=== PATIENT | female | born 1945 | race Two or more races ===

== ENCOUNTER 2016-12-26 15:22 | Emergency (ER) | payer OTHER ==
[~2016-12-26] VITALS: Ht 167.6 cm; Wt 90.7 kg
--- NOTE | ~2016-12-26 | CT122 ---
[facility] A Service of [facility] & [facility] / [facility] RADIOLOGY TEXT RESULTS PATIENT: CHRISTEL BARRERA LOCATION: [place] : 49 UNIT #: [id number] AGE: [address]: Kisha Bazzi SEX: F ORDER DR: [id number] [facility] [address] [place], [place] [address] [id number] E MR#: [id number] Acc #: [id number] NAME: CHRISTEL BARRERA : 1945 SEX: F STUDY DATE/TIME: 12/26/2016 17:50 UNIT: [place] ROOM: STUDY DESCRIPTION: CT Thoracic Spine Wo Cont Attending Physician: Kisha Bazzi Pa-C Ordering Physician: Kisha Bazzi Pa-C Primary Care Physician: No Primary Care Physician MEDICAL IMAGING REPORT This report is preliminary unless electronic signature is present EXAM CT thoracic spine. HISTORY Back pain 3-4 days. Abnormal T-spine x-ray at [facility] today. TECHNIQUE CT thoracic spine performed. This CT exam was performed with one or more of the following radiation dose reduction techniques: automatic exposure control, adjustment of mA and/or kV according to patient size, and iterative reconstruction. Bone soft tissue windows reviewed. Sagittal coronal reconstructions performed. COMPARISON Comparison to plain radiographs earlier on same date. FINDINGS The thyroid is heterogeneous and markedly enlarged extending into the superior mediastinum bilaterally. The visualized left thyroid lobe measures approximately 3.6 cm x 5.6 cm x 5.8 cm and the visualized right thyroid lobe measures approximately 2.2 cm x 4.8 cm x 5.2 cm. Multiple hyper and hypodense nodules. Coarse calcifications in bilateral thyroid lobes. Probably thyroid goiter. Correlate clinically and if warranted consider assessment with thyroid ultrasound. There is mass effect on the trachea, but no critical luminal narrowing. The remainder of visualized mediastinum unremarkable. Heart probably within normal limits of size. No pleural effusions. Visualized portions of the liver, spleen, pancreas, adrenal glands, upper renal poles notable for right upper pole renal cyst measuring about 3 cm x 3.4 cm. No adenopathy. Visualized esophagus, stomach, small bowel and colon unremarkable. The thoracic spine shows mild generalized dextroscoliosis. There is some straightening of the normal lumbar kyphosis. Chronic-appearing STS. [facility] A Service of [facility] RADIOLOGY TEXT RESULTS PATIENT: CHRISTEL BARRERA LOCATION: [place] : 49 UNIT #: [id number] AGE: [address]: Kisha Bazzi SEX: F ORDER DR: compression deformity at the T11 vertebral body with about 16% loss of height posteriorly relative to T10 and about 36% loss of height anteriorly relative to T10. I see no evidence of paraspinal soft tissue edema or hematoma to increase suspicion for acute compression deformity. There is some trabecular impaction, but no discrete acute appearing fracture plane. The compression involves predominately the lower T11 vertebral body. There are prominent Schmorl nodes centrally at the L1 vertebral body level with marked central loss of height at L1 due to the Schmorl nodes, but the anterior and posterior heights are within normal limits. Multilevel degenerative change in the spine. No traumatic appearing fracture. C5-C6: Posterior disc osteophyte complex. Anterior central cord contact. Mild central spinal canal narrowing. C6-C7: Posterior disc osteophyte complex. Mild to moderate central and left paracentral spinal canal narrowing. C7-T1, T1-T2, T2-T3, T3-T4, T4-T5, T5-T6, T6-T7, T7-T8, T8-T9, T9-T10: Left paracentral disc osteophyte complex, T9-T10, with some left paracentral mass effect on thecal sac. No overall spinal stenosis and no definite cord contact. T10-T11: Unremarkable. T11-T12: There is a left posterolateral disc bulge/protrusion abutting the left exiting nerve. No spinal stenosis. T12-L1: Posterior disc osteophyte complex. Minimal mass effect on thecal sac. No spinal stenosis. The neural foramina are patent. T12-L1, L1-L2: No significant disc bulge or herniation and no spinal stenosis. Neural foramina patent without evidence of exiting nerve impingement. IMPRESSION 1. Generalized chronic-appearing compression deformity at the T11 vertebral body, more pronounced anteriorly than posteriorly with about 16% loss of height posteriorly and 36% loss of height anteriorly relative to normal T10. No paraspinal soft tissue findings to suggest acute time course. No distinct cortical break seen. I would favor that this is chronic in time course. No underlying bony destructive process. 2. Moderate to marked central vertebral body loss of height at the L1 level due to superior and inferior endplate Schmorl nodes. The anterior, posterior and lateral aspects of the L1 vertebral body are of normal height. 3. Multilevel degenerative changes in the thoracic spine as described above. See complete kgdxb-[id number] descriptions in body of report. 4. Enlarged substernal thyroid. See measurements in body of report. [facility] A Service of [facility] RADIOLOGY TEXT RESULTS PATIENT: CHRISTEL BARRERA LOCATION: [facility] : [birth year] UNIT #: [id number] AGE: [address]: Kisha Bazzi SEX: F ORDER DR: Multiple nodules. Probably reflecting multinodular goiter. Correlate clinically. Consider elective thyroid ultrasound for further assessment if it would assist in management. The enlarged thyroid does exert mass effect on the trachea, but there is no critical tracheal narrowing. 5. Right upper pole renal cyst. Dictated by... Marcelino Alba M.D. THIS IS AN ELECTRONICALLY VERIFIED REPORT Marcelino Alba M.D. at 12/27/2016 10:45 PM Magdalena TD: 12/27/2016 09:24 JOB #: [id number] MEDICAL IMAGING REPORT Page 1 of 1 COPY
--- NOTE | ~2016-12-26 | CR243 ---
[facility] A Service of [facility] RADIOLOGY TEXT RESULTS PATIENT: CHRISTEL BARRERA LOCATION: [facility] : 49 UNIT #: [id number] AGE: [address]: Kisha Bazzi SEX: F ORDER DR: [id number] [place], [place] [address] [id number] E MR#: [id number] Acc #: [id number] NAME: CHRISTEL BARRERA : 1945 SEX: F STUDY DATE/TIME: 12/26/2016 16:27 UNIT: CFTX ROOM: STUDY DESCRIPTION: CR Thoracic Spine 3 Views Attending Physician: Kisha Bazzi Pa-C Ordering Physician: Kisha Bazzi Pa-C Primary Care Physician: Primary Care Physician No MEDICAL IMAGING REPORT This report is preliminary unless electronic signature is present EXAM Thoracic spine series INDICATION Back pain for 4 days. COMPARISON Lumbar spine series FINDINGS AP and lateral views of the thoracic spine were obtained. There is about a 15% compression fracture of T11. The age is indeterminate but could be acute. The other vertebral bodies are normal in height. There is some disc space narrowing in the mid thoracic spine. IMPRESSION 1. Mild compression deformity affecting the inferior endplate of T11 which is age-indeterminate but certainly could represent an acute finding. 2. The other vertebral bodies are normal in height. There are degenerative changes in the disc spaces. Dictated by... Allan Rosenthal M.D. THIS IS AN ELECTRONICALLY VERIFIED REPORT Allan Rosenthal M.D. at 12/27/2016 6:04 AM SARAH/jared TD: 12/27/2016 03:38 JOB #: [id number] [facility] A Service [facility] RADIOLOGY TEXT RESULTS PATIENT: CHRISTEL BARRERA LOCATION: [facility] : 49 UNIT #: [id number] AGE: [address]: Kisha Bazzi SEX: F ORDER DR: MEDICAL IMAGING REPORT Page 1 of 1 COPY
--- NOTE | ~2016-12-26 | CR181 ---
[facility] A Service of [facility] & [facility] RADIOLOGY TEXT RESULTS PATIENT: CHRISTEL BARRERA LOCATION: [facility] : 49 UNIT #: [id number] AGE: [address]: Kisha Bazzi SEX: F ORDER DR: [id number] [place], [place] [address] [id number] E MR#: [id number] Acc #: [id number] NAME: CHRISTEL BARRERA : 1945 SEX: F STUDY DATE/TIME: 12/26/2016 16:29 UNIT: [facility] ROOM: STUDY DESCRIPTION: CR Lumbar Spine 2 or 3 Views Attending Physician: Kisha Bazzi Pa-C Ordering Physician: Kisha Bazzi Pa-C Primary Care Physician: Primary Care Physician No MEDICAL IMAGING REPORT This report is preliminary unless electronic signature is present EXAMINATION Three views of the lumbar spine. DATE 12/26/2016 HISTORY Thoracic and lumbar spine pain, which began 4 days ago. No known injury. COMPARISON None. FINDINGS No acute lumbar spine fracture or subluxation is seen. There is an age-indeterminate compression deformity of the T11 vertebral body anteriorly. Degenerative endplate changes are present at the inferior endplate of L1, superior endplate of L2. Small anterior osteophytes are present at each lumbar level. There is mild diminished disc height at L5-S1. Suspected mild facet arthropathy at L4-5 and L5-S1. Posterior osteophyte formation is thought to be present at L3-4. No sacroiliac joint diastasis. IMPRESSION 1. Age-indeterminate compression fracture of T11 with anterior wedging. This may represent an acute finding in the context of history of recent fall and back pain. 2. No acute lumbar spine fracture or subluxation. Degenerative endplate changes predominate at the inferior endplate of L1. 3. Posterior osteophyte formation at L3-4 may result in canal stenosis. 4. Facet arthropathy at L4-5 and L5-S1. 5. Zjbe-dv-gokgxuvp diminished disc height at L5-S1. [facility] A Service of [facility] & [facility] RADIOLOGY TEXT RESULTS PATIENT: CHRISTEL BARRERA LOCATION: [facility] : 49 UNIT #: [id number] AGE: [address]: Kisha Bazzi SEX: F ORDER DR: Dictated by... Maday Reyes M.D. THIS IS AN ELECTRONICALLY VERIFIED REPORT Maday Reyes M.D. at 12/27/2016 8:31 AM BRICE/socorro TD: 12/27/2016 04:37 JOB #: [id number] MEDICAL IMAGING REPORT Page 1 of 1 COPY
[2016-12-26 16:21] LABS: URINE SOURCE CLEAN CATCH
[2016-12-26 16:29] LABS: URINE APPEARANCE CLOUDY; URINE BILIRUBIN NEG (NEG); URINE BLOOD TRACE (NEG); URINE COLOR YELLOW; URINE GLUCOSE NEG (NEG); URINE KETONE TRACE (NEG); URINE LEUKOCYTE ESTERASE TRACE (NEG); URINE NITRATE NEG (NEG); URINE PROTEIN TRACE (NEG)
[2016-12-26 16:32] LABS: CULTURE INDICATED? YES; URINE BACTERIA AUWI NEG (NEGATIVE); URINE SQUAMOUS EPITHELIAL CELL FEW /[HPF]
[2016-12-26 16:41] LABS: U HYALINE CASTS AUWI 0-2 /[LPF]; URINE MUCUS PRESENT
== END 2016-12-26 19:40 | disposition home or self-care (01) ==
LOC: CFTX 15:22 → CED 15:22 → CFTX 16:50
PROVIDERS: Physician Assistant Medical
DX: M48.54XA Collapsed vertebra, not elsewhere classified, thoracic region, initial encounter for fracture (principal); E04.2 Nontoxic multinodular goiter; I25.10 Atherosclerotic heart disease of native coronary artery without angina pectoris; I10 Essential (primary) hypertension; Z90.710 Acquired absence of both cervix and uterus
CPT/HCPCS: 72072; 72100; 72128; 81003; 87086; 99284